=== PATIENT | female | born 1980 | race Caucasian/White ===

== ENCOUNTER → 2018-01-01 | Outpatient (CLI) | payer BC ==
[~2018-01-01] MED LIST: HYDR-4225 PO; NITR-105 PO; ONDA4TAB PO
[2018-01-01 09:27] LABS: PLATELET COUNT, AUTOMATED 326 K/uL (150-450)
[2018-01-01 10:22] LABS: LDL CHOLESTEROL 86 mg/dl
== END ==
LOC: LAB 09:00
PROVIDERS: ATTEND Obstetrics & Gynecology Obstetrics
DX: Z01.419 Encounter for gynecological examination (general) (routine) without abnormal findings (principal)
CPT/HCPCS: 36415; 82040; 82247; 82306; 82310; 82374; 82435; 82465; 82565; 82607; 82947; 83036; 83718; 84075; 84132; 84155; 84295; 84443; 84450; 84460; 84478; 84520; 85025; 86592; 86703; 86803; 87340